=== PATIENT | male | born 1950 | race Caucasian/White ===

== ENCOUNTER → 2018-11-04 | Day surgery (SDC) | payer MEDICARE ==
[~2018-11-04] MED LIST: IV RINGERS,LACTATED 1000ML 1,000 ML IV ONE; LIDOCAINE 2% PF 5 ML VIAL. ONE; PROPOFOL 20 ML IV ONE; PROPOFOL 60 ML IV ONE
--- NOTE | 2018-11-04 13:26 | PDOC4 ---
PROCEDURE Procedure Colonoscopy/polypectomies Indication: screening, average-risk, no prior. Meds: per anesthesia Findings: RODRICK: normal -'Scope advanced to cecum. Mucosa normal. No diverticulosis. -8mm polyp, proximal transverse, cold snare off. -10mm polyp, proximal ascending, hot snare. -12mm pedunculated polyp, proxial sigmoid, hot snare. All recovered. Small IH's on retroflex. Beatriz. well. IMP: Polyps, removed Small hemorrhoids. REC: No ASA, NSAIDS for 2 weeks. Await histology. Resume home meds and diet. F/u in 2 weeks. Repeat exam pending pathology. JOHN NELSON MD Nov 04, 2018 13:26
[2018-11-04 13:46] VITALS: BP 100/63
--- NOTE | 2018-11-06 10:09 | PATHOLOGY ---
[facility] Accession Number: [id number] . 01 Material submitted: . PART A: colon - POLYP PROXIMAL TRANSVERSE COLON. Modifiers: transverse, proximal PART B: colon - POLYP PROXIMAL ASCENDING COLON. Modifiers: ascending, proximal PART C: colon - POLYLP PROXIMAL SIGMOID COLON. Modifiers: proximal, sigmoid . 01 Clinical history: . Screening . 02 Diagnosis: A. Colonic mucosa, proximal transverse colon polypectomy: - Pedunculated tubular adenoma. - Base of polyp negative for adenomatous epithelium. . B. Colonic mucosa, proximal ascending colon polypectomy: - Tubulovillous adenoma, predominantly tubular. . C. Colonic mucosa, proximal sigmoid colon polypectomy: - Pedunculated tubular adenoma with focal displacement of adenomatous epithelium within outer stalk of polyp. - Base of polyp negative for adenomatous epithelium. . (JPM:mm; 11/05/2018) [facility]/11/05/2018 . 02 Comment: There is no high grade dysplasia or evidence of malignancy. . (JPM:mml; 11/05/2018) . 02 Electronically signed: . Daniel Liu MD, Pathologist NPI- [id number] . 01 Gross description: . A. Received in formalin labeled "Mendoza Link, proximal transverse colon polyp," is a 0.7 x 0.4 x 0.4 cm polypoid piece of shannon soft tissue with a stalk measuring 0.8 cm in length and 0.2 cm in diameter. The margin of the stalk is inked and the tissue is sectioned perpendicular to the margin and submitted entirely in cassette A1. . B. Received in formalin labeled "Mendoza Link, proximal ascending colon polyp," are 6 segments of shannon soft tissue measuring 2.1 x 1.6 x 0.6 cm in aggregate dimensions and ranging from 0.4 to 0.6 cm in maximum dimension. The specimen is submitted entirely in cassette B1. . C. Received in formalin labeled "Mendoza Link, proximal sigmoid colon polyp," is a 2.0 x 1.4 x 1.3 cm polypoid piece of dark brown soft tissue. The margin is inked and the tissue is sectioned perpendicular to the margin and submitted entirely in cassette C1-C3. (TSD; 11/04/2018) TOB/TOB . 02 Pathologist provided ICD-10: D12.3, D12.2, D12.5 . 02 CPT . 156848, [id number], [id number] Specimen Comment: A courtesy copy of this report has been sent to Specimen Comment: [phone], . Specimen Comment: Report sent to / DR JIMENEZ Performed at: 01 [facility] [address], [place] [id number] MD Steve Barreto MD Phone: [phone] Performed at: 02 [facility] [address] [place], [place] [id number] MD Daniel Liu MD Phone: [phone]
== END ==
LOC: SURG 11:55
PROVIDERS: ATTEND Internal Medicine Gastroenterology
DX: Z12.11 Encounter for screening for malignant neoplasm of colon (principal); D12.3 Benign neoplasm of transverse colon; D12.2 Benign neoplasm of ascending colon; D12.5 Benign neoplasm of sigmoid colon; K64.0 First degree hemorrhoids
CPT/HCPCS: 45385; 88305; J2001; J2704; 45380

== ENCOUNTER → 2019-03-31 | Outpatient (CLI) | payer BC ==
[2018-11-04 13:46] VITALS: BP 100/63
--- NOTE | 2019-03-31 16:18 | RAD ---
EXAM: Chest, 2 views. HISTORY: Cough. COMPARISON: None. FINDINGS: 2 views of the chest are obtained. There is no infiltrate, pleural effusion or pneumothorax. The heart is normal in size. There is hyperinflation due to suspected emphysema. There is superimposed chronic appearing interstitial changes. There are calcified granulomas. IMPRESSION: No acute pulmonary finding. Electronically signed by: Sharmaine Aggarwal MD (03/31/2019 4:15 PM) [place] [id number]
== END | disposition home or self-care (01) ==
LOC: RAD 15:29
PROVIDERS: ATTEND Internal Medicine
DX: J98.4 Other disorders of lung (principal)
CPT/HCPCS: 71046